=== PATIENT | male | born 1950 | race Hispanic/Latino ===

== ENCOUNTER 2016-04-20 10:10 | Outpatient (CLI) | payer OTHER ==
--- NOTE | 2016-04-20 15:21 | Ultrasound Report ---
RIGHT BREAST ULTRASOUND: 04/20/16 10:10:00 CLINICAL: This patient presented for an ultrasound-guided biopsy of a palpable right subareolar breast mass. However, the patient states that it has resolved. COMPARISON: 02/23/16 FINDINGS: Ultrasound of the right breast was performed and failed to demonstrate the previously described subareolar mass at 11:30 o'clock. IMPRESSION: Negative study. BI-RADS 1 negative RECOMMENDATION: Clinical followup.
== END 2016-04-20 10:11 | disposition home or self-care (01) ==
LOC: SPVWC 10:10
PROVIDERS: ATTEND Internal Medicine
DX: N63 Unspecified lump in breast (principal)

== ENCOUNTER 2017-02-10 12:44 | Emergency (ER) | payer OTHER ==
[2017-02-10 13:09] VITALS: BP 131/80
[2017-02-10 13:41] LABS: Bilirubin,Urine NEG (Negative); Blood,Urine MOD (Negative); Ketones,Urine NEG (Negative); Leukocyte Esterase,Urine NEG (Negative); Mucus,Urine FEW /HPF; Nitrite,Urine NEG (Negative); Protein,Urine <15 mg/dL mg/dL (Negative)
[2017-02-10] MEDS ORDERED: NACL 0.9% 1000 ML 1,000 ML IV ONE (14:45)
[2017-02-10] MEDS ORDERED: NORCO 5/325 PO ONE (14:45)
[2017-02-10] MEDS ORDERED: ZOFRAN ODT PO ONE (14:46)
--- NOTE | 2017-02-10 14:50 | Emergency Department Report ---
<OCTAVIA HANNAH Sea - Last Filed: 02/10/17 16:50> ED Abdominal Pain HPI - General Chief Complaint: Urogenital-Male Stated Complaint: BACK PAIN Time Seen by Provider: 02/10/17 14:40 Source: patient Mode of arrival: Ambulatory Limitations: No Limitations - History of Present Illness MD Complaint: flank pain (L) -: Sudden Location: L flank Radiation: L flank, back Migration to: no migration Severity: moderate Quality: cramping Consistency: constant Improves With: nothing Worsens With: nothing Associated Symptoms: other (CHANGE IN AMOUNT OF URINE). denies: nausea, vomiting, diarrhea, fever, chills, constipation, dysuria, hematemesis, hematochezia, melena, hematuria, anorexia, syncope - Related Data Home Medications Medication Instructions Recorded Confirmed Last Taken Etodolac 200 mg PO BID 08/12/13 08/12/13 08/12/13 amLODIPine [Norvasc] 5 mg PO DAILY 08/12/13 08/12/13 08/12/13 Previous Rx's Medication Instructions Recorded Last Taken Type Omeprazole [PriLOSEC] 20 mg PO BID #60 cap 08/12/13 Unknown Rx Ciprofloxacin HCl [Cipro] 500 mg PO BID #6 tablet 02/10/17 Unknown Rx Ondansetron [Zofran Odt] 4 mg PO Q4H PRN #10 tab.rapdis 02/10/17 Unknown Rx Tamsulosin HCl [Flomax] 0.4 mg PO DAILY #3 cap.er.24h 02/10/17 Unknown Rx traMADol [Ultram] 50 mg PO Q6HR PRN #12 tablet 02/10/17 Unknown Rx Allergies Allergy/AdvReac Type Severity Reaction Status Date / Time codeine AdvReac Intermediate Nausea Verified 02/16/13 07:18 ED Review of Systems ROS: Stated complaint: BACK PAIN Other details as noted in HPI Comment: All other systems reviewed and negative Gastrointestinal: abdominal pain. denies: nausea, vomiting, diarrhea, constipation, hematemesis, melena, hematochezia Genitourinary: as per HPI, dysuria. denies: urgency, frequency, hematuria, discharge, testicular pain, testicular mass Musculoskeletal: back pain ED Past Medical Hx - Past Medical History Hx Hypertension: Yes Hx Arthritis: Yes - Surgical History Hx Cholecystectomy: Yes Additional Surgical History: right elbow surgery, - Social History Smoking Status: Never Smoker Substance Use Type: Alcohol - Medications Home Medications: Home Medications Medication Instructions Recorded Confirmed Last Taken Type Etodolac 200 mg PO BID 08/12/13 08/12/13 08/12/13 History Omeprazole [PriLOSEC] 20 mg PO BID #60 cap 08/12/13 Unknown Rx amLODIPine [Norvasc] 5 mg PO DAILY 08/12/13 08/12/13 08/12/13 History Ciprofloxacin HCl [Cipro] 500 mg PO BID #6 tablet 02/10/17 Unknown Rx Ondansetron [Zofran Odt] 4 mg PO Q4H PRN #10 tab.rapdis 02/10/17 Unknown Rx Tamsulosin HCl [Flomax] 0.4 mg PO DAILY #3 cap.er.24h 02/10/17 Unknown Rx traMADol [Ultram] 50 mg PO Q6HR PRN #12 tablet 02/10/17 Unknown Rx ED Physical Exam - General Limitations: No Limitations General appearance: alert - Head Head exam: Present: atraumatic - Eye Eye exam: Present: PERRL Pupils: Present: normal accommodation - ENT ENT exam: Present: mucous membranes moist - Neck Neck exam: Present: normal inspection - Respiratory Respiratory exam: Present: normal lung sounds bilaterally - Cardiovascular Cardiovascular Exam: Present: regular rate - GI/Abdominal GI/Abdominal exam: Present: soft, normal bowel sounds. Absent: distended, tenderness, guarding, rebound, rigid, diminished bowel sounds, hyperactive bowel sounds, hypoactive bowel sounds, organomegaly, mass, bruit, pulsatile mass , hernia - Rectal Rectal exam: Present: deferred - Extremities Exam Extremities exam: Present: normal inspection - Back Exam Back exam: Present: normal inspection, full ROM - Neurological Exam Neurological exam: Present: alert, oriented X3, CN II-XII intact, normal gait - Psychiatric Psychiatric exam: Present: normal affect, normal mood - Skin Skin exam: Present: warm, dry, intact ED Course Vital Signs 02/10/17 13:05 Temperature 98.3 F Pulse Rate 80 Respiratory 14 Rate Blood Pressure 131/80 O2 Sat by Pulse 97 Oximetry - Reevaluation(s) Reevaluation #1: 02/10/17 16:51 TO ER W L FLANK PAIN WHILE IN TRIAGE PASSED STONE NO GROSS HEMATURIA TO FAST TRACK UA NOTED NO CVA TENDERNESS VOIDING LARGE AMOUNT CL YELLOW URINE NO FEVER LABS NOTED CT NOTED MEDICATED Reevaluation #2: 02/10/17 16:51 FEELS FINE. WILL DC HOME W DC POC PT UPDATED WILL SEE URO NEXT WEEK. ED Medical Decision Making - Lab Data Result diagrams: 02/10/17 15:23 02/10/17 15:23 - Radiology Data Radiology results: report reviewed, image reviewed - Medical Decision Making SEE NOTE - Differential Diagnosis RO NEPHROL. Critical care attestation.: If time is entered above; I have spent that time in minutes in the direct care of this critically ill patient, excluding procedure time. ED Disposition Disposition: DC-01 TO HOME OR SELFCARE Is pt being admited?: No Does the pt Need Aspirin: No Condition: Stable Instructions: Kidney Stones (ED), How to Strain Your Urine (ED), Flank Pain (ED ) Additional Instructions: MEDS ORDERED TODAY HYDRATE WELL MONITOR FOR MORE STONES Prescriptions: Ciprofloxacin HCl [Cipro] 500 mg PO BID #6 tablet Ondansetron [Zofran Odt] 4 mg PO Q4H PRN #10 tab.rapdis PRN Reason: Nausea Tamsulosin HCl [Flomax] 0.4 mg PO DAILY #3 cap.er.24h traMADol [Ultram] 50 mg PO Q6HR PRN #12 tablet PRN Reason: Pain Referrals: PRIMARY CARE, [Referring] - 3-5 Days ADITYA HUTSON MD [Staff Physician] - 3-5 Days BERTA FLOR MD [Staff Physician] - 3-5 Days ALEXANDER SAN MD [Staff Physician] - 3-5 Days RHIANNA DAI MD [Staff Physician] - 3-5 Days Time of Disposition: 16:21 <SHERI GAVIN - Last Filed: 02/15/17 05:30> ED Medical Decision Making - Lab Data Result diagrams: 02/10/17 15:23 02/10/17 15:23
[2017-02-10 15:43] LABS: Basophils % (Auto) 0.6 % (0.0-1.8); Eosinophils % (Auto) 0.7 % (0.0-4.3); Hematocrit 41.5 % (35.5-45.6); Hemoglobin 14.1 gm/dl (11.8-15.2); Mean Corpuscular HGB Conc 34 % (32-34); Mean Corpuscular Hemoglobin 31 pg (28-32); Mean Corpuscular Volume 91 fl (84-94); Platelet Count 213 K/mm3 (140-440); Red Blood Count 4.59 M/mm3 (3.65-5.03); Red Cell Distribution Width 13.6 % (13.2-15.2); White Blood Count 11.5 K/mm3 (4.5-11.0)
--- NOTE | 2017-02-10 15:50 | Cat Scan Report ---
CT abdomen and pelvis without contrast: Flank pain. Transverse images are obtained from the lower chest to the ischium with coronal and sagittal reformatted images. The visualized lung bases are clear. Cardiovascular calcifications are noted. Multiple low attenuation circumscribed masses are identified in the liver. The largest of these is in the left lobe measuring 3.8 cm. The abdominal structures are not otherwise remarkable except for cholecystectomy. There are bilateral renal calcifications. In the right mid renal collecting system there is a 5 mm calculus and a smaller calculus in the inferior portion. In the mid left kidney is a 7.4 mm calculus with 2 smaller calculi in the lower kidney. The right ureter is unremarkable in size. The left ureter is slightly larger throughout its course with some question of mild periureteral edema in the midportion. No evidence however of an intraluminal calculus is currently noted and there is no calculus identified in the bladder. The abdominal aorta is heavily calcified but normal in size and contour. The retroperitoneal structures are otherwise unremarkable. There is a moderate volume of fecal matter throughout the colon. The appendix is visualized and unremarkable. There is diffuse lower thoracic and lumbar spondylosis with diffuse interspace narrowing. Impressions: 1. Bilateral renal calculi. 2. No current ureteral calculus noted. The findings in the left ureter however raise suspicion of recently passed calculus. 3. Significant degenerative lumbar spine disease. 4. Severe atherosclerotic changes of the aorta. 5. Multiple hepatic cysts.
[2017-02-10 15:59] LABS: Anion Gap 19 mmol/L; BUN/Creatinine Ratio 21; Blood Urea Nitrogen 17 mg/dL (9-20); Calcium 8.9 mg/dL (8.4-10.2); Carbon Dioxide 22 mmol/L (22-30); Chloride 106.5 mmol/L (98-107); Glucose 103 mg/dL (75-100); Potassium 4.5 mmol/L (3.6-5.0); Sodium 143 mmol/L (137-145)
[2017-02-10] MEDS ORDERED: ROCEPHIN/NS 1 GM/50 ML 1 GM/50 ML BAG IV ONE (16:05)
[2017-02-10] MEDS ORDERED: cefTRIAXone 1 GM in NACL 0.9% 20 ML IV ONE (16:15)
== END 2017-02-10 17:54 | disposition home or self-care (01) ==
LOC: ED 12:44
DX: R10.9 Unspecified abdominal pain (principal); I10 Essential (primary) hypertension; M19.90 Unspecified osteoarthritis, unspecified site; Z88.6 Allergy status to analgesic agent
CPT/HCPCS: 36415; 74176; 80048; 81001; 85025; 87086; 96361; 96374; 99284; J0696; J7030; Q0162

== ENCOUNTER 2017-11-01 05:44 | Emergency (ER) | payer OTHER ==
[2017-11-01 06:02] VITALS: BP 174/108
[2017-11-01 06:27] LABS: INR 0.83 (0.87-1.13); Partial Thromboplastin Time 26.9 Sec. (24.2-36.6)
[2017-11-01 06:34] LABS: Bilirubin,Urine NEG (Negative); Blood,Urine NEG (Negative); Color,Urine Yellow (Yellow); Mucus,Urine FEW /HPF; Protein,Urine <15 mg/dL mg/dL (Negative); Urobilinogen,Urine < 2.0 mg/dL (<2.0); WBC,Urine < 1.0 /HPF (0.0-6.0)
[2017-11-01 06:35] LABS: Basophils # (Auto) 0.1 K/mm3 (0.0-0.1); Eosinophils # (Auto) 0.2 K/mm3 (0.0-0.4); Eosinophils % (Auto) 4.1 % (0.0-4.3); Hematocrit 44.7 % (35.5-45.6); Hemoglobin 15.4 gm/dl (11.8-15.2); Lymphocytes # (Auto) 1.6 K/mm3 (1.2-5.4); Lymphocytes % (Auto) 26.8 % (13.4-35.0); Mean Corpuscular HGB Conc 35 % (32-34); Mean Corpuscular Hemoglobin 31 pg (28-32); Mean Corpuscular Volume 89 fl (84-94); Monocytes # (Auto) 0.5 K/mm3 (0.0-0.8); Platelet Count 233 K/mm3 (140-440); Red Blood Count 5.03 M/mm3 (3.65-5.03); Red Cell Distribution Width 13.4 % (13.2-15.2)
--- NOTE | 2017-11-01 06:39 | XRay Report ---
FINAL REPORT EXAM: XR CHEST ROUTINE 2V HISTORY: dizziness TECHNIQUE: PA and lateral chest radiographs PRIORS: None. FINDINGS: No mediastinal shift. Cardiac silhouette is not enlarged. No pneumothorax, effusion, or focal pulmonary opacity. No acute skeletal finding. IMPRESSION: No focal pulmonary opacity.
[2017-11-01 06:46] LABS: Alanine Aminotransferase 16 units/L (7-56); Albumin 4.5 g/dL (3.9-5); BUN/Creatinine Ratio 13; Blood Urea Nitrogen 12 mg/dL (9-20); Calcium 9.2 mg/dL (8.4-10.2); Hemolysis Index 9
[2017-11-01] MEDS ORDERED: ANTIVERT PO ONE (08:07)
[2017-11-01] MEDS ORDERED: ZOFRAN ODT PO ONE (08:07)
--- NOTE | 2017-11-01 08:14 | Emergency Department Report ---
ED Dizziness HPI - General Chief Complaint: Dizziness Stated Complaint: NAUSEA DIZZY SWEATING Time Seen by Provider: 11/01/17 07:36 Source: patient Mode of arrival: Ambulatory Limitations: No Limitations - History of Present Illness Initial Comments: 67-year-old male with a past medical history of arthritis, hypertension, and previous cholecystectomy presents to the hospital complaining of waking up 1 hour prior to arrival with a spinning sensation, nausea, and a little bit of vomiting 1. Patient states he gets dizzy when he closes his eyes. He has chronic ringing in both ears does not see a ENT doctor. Patient had sweating with episode this a.m. but denies headache, chest pain, shortness of breath, abdominal pain, diarrhea, hematemesis, or melena. No focal weakness or numbness reported. PMD: Dr. Colindres - Related Data Home Medications Medication Instructions Recorded Confirmed Last Taken Etodolac 200 mg PO BID 08/12/13 11/01/17 10/31/17 amLODIPine [Norvasc] 5 mg PO DAILY 08/12/13 11/01/17 10/31/17 HYDROcodone/ACETAMINOPHEN 1 each PO QDAY 11/01/17 11/01/17 10/31/17 [Hydrocodone-Acetamin 7.5-300] Previous Rx's Medication Instructions Recorded Last Taken Type Omeprazole [PriLOSEC] 20 mg PO BID #60 cap 08/12/13 10/31/17 Rx Amoxicillin/K Clav Tab [Augmentin 1 tab PO Q12HR #14 tab 11/01/17 Unknown Rx 875 mg] Meclizine [Antivert] 25 mg PO TID PRN #30 tablet 11/01/17 Unknown Rx Ondansetron [Zofran Odt] 4 mg PO Q8HR PRN #20 tab.rapdis 11/01/17 Unknown Rx Allergies Allergy/AdvReac Type Severity Reaction Status Date / Time codeine AdvReac Intermediate Nausea Verified 02/16/13 07:18 ED Review of Systems ROS: Stated complaint: NAUSEA DIZZY SWEATING Other details as noted in HPI Comment: All other systems reviewed and negative ED Past Medical Hx - Past Medical History Previous Medical History?: Yes Hx Hypertension: Yes Hx Arthritis: Yes - Surgical History Past Surgical History?: Yes Hx Cholecystectomy: Yes Additional Surgical History: right elbow surgery, - Social History Smoking Status: Former Smoker Substance Use Type: None - Medications Home Medications: Home Medications Medication Instructions Recorded Confirmed Last Taken Type Etodolac 200 mg PO BID 08/12/13 11/01/17 10/31/17 History Omeprazole [PriLOSEC] 20 mg PO BID #60 cap 08/12/13 11/01/17 10/31/17 Rx amLODIPine [Norvasc] 5 mg PO DAILY 08/12/13 11/01/17 10/31/17 History Amoxicillin/K Clav Tab [Augmentin 1 tab PO Q12HR #14 tab 11/01/17 Unknown Rx 875 mg] HYDROcodone/ACETAMINOPHEN 1 each PO QDAY 11/01/17 11/01/17 10/31/17 History [Hydrocodone-Acetamin 7.5-300] Meclizine [Antivert] 25 mg PO TID PRN #30 tablet 11/01/17 Unknown Rx Ondansetron [Zofran Odt] 4 mg PO Q8HR PRN #20 tab.rapdis 11/01/17 Unknown Rx ED Physical Exam - General Limitations: No Limitations - Other Other exam information: General: No limitations, patient is alert in no acute distress Head exam: Atraumatic, normocephalic Eyes exam: Normal appearance, pupils equal reactive to light, extraocular movements intact, no nystagmus ENT: Moist mucous membrane, TM abnormal with scarring questionable fluid, left TM normal. No erythema or bulging Neck exam: Normal inspection, full range of motion, no meningismus nontender Respiratory exam: Clear to auscultation bilateral, no wheezes, rales, crackles Cardiovascular: Normal rate and rhythm, normal heart sounds Abdomen: Soft, nondistended, and nontender, with normal bowel sounds, no rebound, or guarding Extremity: Full range of motion normal inspection no deformity Back: Normal Inspection, full range of motion, no tenderness Neurologic: Alert, oriented x3, cranial nerves intact, no motor or sensory deficit, [id number] function intact Psychiatric: normal affect, normal mood Skin: Warm, dry, intact ED Course Vital Signs 11/01/17 11/01/17 11/01/17 05:56 08:00 08:23 Temperature 97.4 F L 97.2 F L Pulse Rate 76 Respiratory 16 16 Rate Blood Pressure 174/108 O2 Sat by Pulse 98 98 Oximetry ED Medical Decision Making - Lab Data Result diagrams: 11/01/17 06:21 11/01/17 06:21 Lab Results 11/01/17 11/01/17 11/01/17 Range/Units 06:07 06:21 06:21 WBC 6.0 (4.5-11.0) K/mm3 RBC 5.03 (3.65-5.03) M/mm3 Hgb 15.4 H (11.8-15.2) gm/dl Hct 44.7 (35.5-45.6) % MCV 89 (84-94) fl MCH 31 (28-32) pg MCHC 35 H (32-34) % RDW 13.4 (13.2-15.2) % Plt Count 233 (140-440) K/mm3 Lymph % (Auto) 26.8 (13.4-35.0) % [place] % (Auto) 9.0 H (0.0-7.3) % Eos % (Auto) 4.1 (0.0-4.3) % Baso % (Auto) 1.0 (0.0-1.8) % Lymph # 1.6 (1.2-5.4) K/mm3 [place] # 0.5 (0.0-0.8) K/mm3 Eos # 0.2 (0.0-0.4) K/mm3 Baso # 0.1 (0.0-0.1) K/mm3 Seg Neutrophils % 59.1 (40.0-70.0) % Seg Neutrophils # 3.5 (1.8-7.7) K/mm3 PT 11.8 L (12.2-14.9) Sec. INR 0.83 L (0.87-1.13) APTT 26.9 (24.2-36.6) Sec. Sodium 143 (137-145) mmol/L Potassium 4.3 (3.6-5.0) mmol/L Chloride 107.1 H (98-107) mmol/L Carbon Dioxide 25 (22-30) mmol/L Anion Gap 15 mmol/L BUN 12 (9-20) mg/dL Creatinine 0.9 (0.8-1.5) mg/dL Estimated GFR > 60 ml/min BUN/Creatinine Ratio 13 % Glucose 132 H (75-100) mg/dL Calcium 9.2 (8.4-10.2) mg/dL Total Bilirubin 0.20 (0.1-1.2) mg/dL AST 17 (5-40) units/L ALT 16 (7-56) units/L Alkaline Phosphatase 84 (35-129) units/L Troponin T (0.00-0.029) ng/mL Total Protein 6.6 (6.3-8.2) g/dL Albumin 4.5 (3.9-5) g/dL Albumin/Globulin Ratio 2.1 % Urine Color (Yellow) Urine Turbidity (Clear) Urine pH (5.0-7.0) Ur Specific [place] (1.003-1.030) Urine Protein (Negative) mg/dL Urine Glucose (UA) (Negative) mg/dL Urine Ketones (Negative) mg/dL Urine Blood (Negative) Urine Nitrite (Negative) Urine Bilirubin (Negative) Urine Urobilinogen (<2.0) mg/dL Ur Leukocyte Esterase (Negative) Urine WBC (Auto) (0.0-6.0) /HPF Urine RBC (Auto) (0.0-6.0) /HPF U Epithel Cells (Auto) (0-13.0) /HPF Urine Mucus /HPF 11/01/17 11/01/17 Range/Units 06:21 Unknown WBC (4.5-11.0) K/mm3 RBC (3.65-5.03) M/mm3 Hgb (11.8-15.2) gm/dl Hct (35.5-45.6) % MCV (84-94) fl MCH (28-32) pg MCHC (32-34) % RDW (13.2-15.2) % Plt Count (140-440) K/mm3 Lymph % (Auto) (13.4-35.0) % [place] % (Auto) (0.0-7.3) % Eos % (Auto) (0.0-4.3) % Baso % (Auto) (0.0-1.8) % Lymph # (1.2-5.4) K/mm3 [place] # (0.0-0.8) K/mm3 Eos # (0.0-0.4) K/mm3 Baso # (0.0-0.1) K/mm3 Seg Neutrophils % (40.0-70.0) % Seg Neutrophils # (1.8-7.7) K/mm3 PT (12.2-14.9) Sec. INR (0.87-1.13) APTT (24.2-36.6) Sec. Sodium (137-145) mmol/L Potassium (3.6-5.0) mmol/L Chloride (98-107) mmol/L Carbon Dioxide (22-30) mmol/L Anion Gap mmol/L BUN (9-20) mg/dL Creatinine (0.8-1.5) mg/dL Estimated GFR ml/min BUN/Creatinine Ratio % Glucose (75-100) mg/dL Calcium (8.4-10.2) mg/dL Total Bilirubin (0.1-1.2) mg/dL AST (5-40) units/L ALT (7-56) units/L Alkaline Phosphatase (35-129) units/L Troponin T < 0.010 (0.00-0.029) ng/mL Total Protein (6.3-8.2) g/dL Albumin (3.9-5) g/dL Albumin/Globulin Ratio % Urine Color Yellow (Yellow) Urine Turbidity Clear (Clear) Urine pH 6.0 (5.0-7.0) Ur Specific [place] 1.012 (1.003-1.030) Urine Protein <15 mg/dl (Negative) mg/dL Urine Glucose (UA) Neg (Negative) mg/dL Urine Ketones Neg (Negative) mg/dL Urine Blood Neg (Negative) Urine Nitrite Neg (Negative) Urine Bilirubin Neg (Negative) Urine Urobilinogen < 2.0 (<2.0) mg/dL Ur Leukocyte Esterase Neg (Negative) Urine WBC (Auto) < 1.0 (0.0-6.0) /HPF Urine RBC (Auto) 3.0 (0.0-6.0) /HPF U Epithel Cells (Auto) 1.0 (0-13.0) /HPF Urine Mucus Few /HPF - EKG Data -: EKG Interpreted by Tn EKG shows normal: sinus rhythm, axis (qrs 15), QRS complexes (qrsd 93), ST-T waves (no stemi/ t inv) Rate: normal (67) - EKG Data When compared to previous EKG there are: no significant change (02/16/13) - Radiology Data Radiology results: report reviewed CT HEAD WITHOUT CONTRAST INDICATION: Vertigo, nausea. COMPARISON: None similar. FINDINGS: Noncontrast head CT demonstrates normal ventricles and sulci without acute or recent infarct, hemorrhage, mass effect or midline shift. Minimal, benign bilateral basal ganglia calcifications. No abnormal extra-axial fluid collections. Posterior fossa structures and basilar cisterns appear within normal limits. Symmetric eye globes. Clear frontal sinuses and mastoid air cells. Leftward nasal septal deviation, axial image 3. Mild bilateral maxillary and ethmoid sinuses as also lateral nasal mucosal thickening noted. Slight bilateral sphenoid sinus mucosal thickening anteriorly as well. Intact calvarium. Normal overlying scalp soft tissues. Few radiopaque dental material incidentally noted. Mid to lower cervical spondylosis. CONCLUSION: No acute intracranial CT abnormality with sinusitis and nasal septal deviation noted, as described. FINAL REPORT EXAM: XR CHEST ROUTINE 2V HISTORY: dizziness TECHNIQUE: PA and lateral chest radiographs PRIORS: None. FINDINGS: No mediastinal shift. Cardiac silhouette is not enlarged. No pneumothorax, effusion, or focal pulmonary opacity. No acute skeletal finding. IMPRESSION: No focal pulmonary opacity. - Medical Decision Making vertigo nonfocal neuro exam ct brain naf, mild sinusitis noted labs, orthostatics, ekg unremarkable improved in ed with meclizine and zofran plan to d/c with pmd and ent f/u htn chronic improved compared to triage - Differential Diagnosis vertigo, serous otitis, CVA, electrolyte abnormality, arrhythmia Critical Care Time: No Critical care attestation.: If time is entered above; I have spent that time in minutes in the direct care of this critically ill patient, excluding procedure time. ED Disposition Clinical Impression: Vertigo, Sinusitis Disposition: DC-01 TO HOME OR SELFCARE Is pt being admited?: No Does the pt Need Aspirin: No Condition: Stable Instructions: Vertigo (ED), Sinusitis (ED) Additional Instructions: Take the medication as prescribed. Follow up with your primary care doctor and an ear nose and throat doctor. Return is symptoms worsen as indicated by your discharge instructions. Prescriptions: Amoxicillin/K Clav Tab [Augmentin 875 mg] 1 tab PO Q12HR #14 tab Meclizine [Antivert] 25 mg PO TID PRN #30 tablet PRN Reason: Vertigo Ondansetron [Zofran Odt] 4 mg PO Q8HR PRN #20 tab.rapdis PRN Reason: Nausea And Vomiting Referrals: YESSY COLINDRES MD [Staff Physician] - 3-5 Days KENNA CHAVARRIA MD [Staff Physician] - 3-5 Days (ENT doctor) SAMEERA AGUILERA MD [Staff Physician] - 3-5 Days (ENT doctor) Time of Disposition: 10:36
--- NOTE | 2017-11-01 10:06 | Cat Scan Report ---
CT HEAD WITHOUT CONTRAST INDICATION: Vertigo, nausea. COMPARISON: None similar. FINDINGS: Noncontrast head CT demonstrates normal ventricles and sulci without acute or recent infarct, hemorrhage, mass effect or midline shift. Minimal, benign bilateral basal ganglia calcifications. No abnormal extra-axial fluid collections. Posterior fossa structures and basilar cisterns appear within normal limits. Symmetric eye globes. Clear frontal sinuses and mastoid air cells. Leftward nasal septal deviation, axial image 3. Mild bilateral maxillary and ethmoid sinuses as also lateral nasal mucosal thickening noted. Slight bilateral sphenoid sinus mucosal thickening anteriorly as well. Intact calvarium. Normal overlying scalp soft tissues. Few radiopaque dental material incidentally noted. Mid to lower cervical spondylosis. CONCLUSION: No acute intracranial CT abnormality with sinusitis and nasal septal deviation noted, as described. Thank you for the opportunity to participate in this patient's care.
== END 2017-11-01 10:30 | disposition home or self-care (01) ==
LOC: ED 05:44
DX: R42 Dizziness and giddiness (principal); J32.9 Chronic sinusitis, unspecified; R11.2 Nausea with vomiting, unspecified; I10 Essential (primary) hypertension; M19.90 Unspecified osteoarthritis, unspecified site; Z90.49 Acquired absence of other specified parts of digestive tract; Z87.891 Personal history of nicotine dependence; Z88.5 Allergy status to narcotic agent
CPT/HCPCS: 36415; 70450; 71046; 80053; 81001; 84484; 85025; 85610; 85730; 93005; 93010; 99284; Q0162

== ENCOUNTER 2018-04-26 02:01 | Emergency (ER) | payer BC, OTHER ==
[2018-04-26] MEDS ORDERED: TYLENOL PO ONE (02:19)
[2018-04-26] MEDS ORDERED: DELTASONE PO ONE (04:50)
[2018-04-26] MEDS ORDERED: ULTRAM PO ONE (04:50)
[2018-04-26 05:12] VITALS: BP 136/74
--- NOTE | 2018-04-26 05:13 | Emergency Department Report ---
ED General Adult HPI - General Chief complaint: Extremity Problem,Nontraumatic Stated complaint: RT FOOT PAIN Time Seen by Provider: 04/26/18 04:49 Source: patient Mode of arrival: Ambulatory Limitations: No Limitations - History of Present Illness Initial comments: Mr. Warner is a 68-year-old white male with a history of gout who presents for right foot and ankle pain 2 days states pain just started when he was at work yesterday patient denies fall injury or trauma pain is 5/10 aching mild swelling symptoms are exacerbated by prolonged standing and walking symptoms are relieved by rest and offloading patient is out of gout medication does not remember if he is on allopurinol or not but has not taken it for the last 6 months patient has PCP Dr. Colindres will be able to follow-up the same in 2 days Patient denies numbness tingling Onset/Timin -: days(s) Location: lower extremity Radiation: extremity Severity scale (0 -10): 3 Quality: aching Consistency: constant Improves with: rest Worsens with: movement, other (weight bearing ) Treatments Prior to Arrival: none - Related Data Home Medications Medication Instructions Recorded Confirmed Last Taken Etodolac 200 mg PO BID 08/12/13 11/01/17 10/31/17 amLODIPine [Norvasc] 5 mg PO DAILY 08/12/13 11/01/17 10/31/17 HYDROcodone/ACETAMINOPHEN 1 each PO QDAY 11/01/17 11/01/17 10/31/17 [Hydrocodone-Acetamin 7.5-300] Previous Rx's Medication Instructions Recorded Last Taken Type Omeprazole [PriLOSEC] 20 mg PO BID #60 cap 08/12/13 10/31/17 Rx Amoxicillin/K Clav Tab [Augmentin 1 tab PO Q12HR #14 tab 11/01/17 Unknown Rx 875 mg] Meclizine [Antivert] 25 mg PO TID PRN #30 tablet 11/01/17 Unknown Rx Ondansetron [Zofran Odt] 4 mg PO Q8HR PRN #20 tab.rapdis 11/01/17 Unknown Rx Indomethacin 50 mg PO Q8H 10 Days #30 capsule 04/26/18 Unknown Rx predniSONE [Deltasone] 40 mg PO QDAY 5 Days #10 tab 04/26/18 Unknown Rx Allergies Allergy/AdvReac Type Severity Reaction Status Date / Time codeine AdvReac Intermediate Nausea Verified 02/16/13 07:18 ED Review of Systems ROS: Stated complaint: RT FOOT PAIN Other details as noted in HPI Constitutional: denies: chills, fever Eyes: denies: eye pain, eye discharge, vision change ENT: denies: ear pain, throat pain Respiratory: denies: cough, shortness of breath, wheezing Cardiovascular: denies: chest pain, palpitations Endocrine: no symptoms reported Gastrointestinal: as per HPI. denies: abdominal pain, nausea, vomiting Genitourinary: denies: urgency, dysuria Musculoskeletal: joint swelling, arthralgia (right foot ). denies: back pain Skin: denies: rash, lesions Neurological: denies: headache, weakness, paresthesias Psychiatric: denies: anxiety, depression Hematological/Lymphatic: denies: easy bleeding, easy bruising ED Past Medical Hx - Past Medical History Previous Medical History?: Yes Hx Hypertension: Yes Hx Arthritis: Yes - Surgical History Past Surgical History?: Yes Hx Cholecystectomy: Yes Additional Surgical History: right elbow surgery, - Social History Smoking Status: Former Smoker Substance Use Type: None - Medications Home Medications: Home Medications Medication Instructions Recorded Confirmed Last Taken Type Etodolac 200 mg PO BID 08/12/13 11/01/17 10/31/17 History Omeprazole [PriLOSEC] 20 mg PO BID #60 cap 08/12/13 11/01/17 10/31/17 Rx amLODIPine [Norvasc] 5 mg PO DAILY 08/12/13 11/01/17 10/31/17 History Amoxicillin/K Clav Tab [Augmentin 1 tab PO Q12HR #14 tab 11/01/17 Unknown Rx 875 mg] HYDROcodone/ACETAMINOPHEN 1 each PO QDAY 11/01/17 11/01/17 10/31/17 History [Hydrocodone-Acetamin 7.5-300] Meclizine [Antivert] 25 mg PO TID PRN #30 tablet 11/01/17 Unknown Rx Ondansetron [Zofran Odt] 4 mg PO Q8HR PRN #20 tab.rapdis 11/01/17 Unknown Rx Indomethacin 50 mg PO Q8H 10 Days #30 capsule 04/26/18 Unknown Rx predniSONE [Deltasone] 40 mg PO QDAY 5 Days #10 tab 04/26/18 Unknown Rx ED Physical Exam - General Limitations: No Limitations General appearance: alert, in no apparent distress - Head Head exam: Present: atraumatic, normocephalic - Eye Eye exam: Present: normal appearance, PERRL, EOMI Pupils: Present: normal accommodation - ENT ENT exam: Present: mucous membranes moist - Neck Neck exam: Present: normal inspection - Respiratory Respiratory exam: Present: normal lung sounds bilaterally. Absent: respiratory distress, wheezes, stridor - Cardiovascular Cardiovascular Exam: Present: regular rate, normal rhythm, normal heart sounds. Absent: systolic murmur, diastolic murmur, rubs, gallop - GI/Abdominal GI/Abdominal exam: Present: soft, normal bowel sounds - Rectal Rectal exam: Present: deferred - Extremities Exam Extremities exam: Present: normal inspection, full ROM, tenderness (right foot ), normal capillary refill, joint swelling. Absent: pedal edema, calf tenderness - Expanded Lower Extremity Exam Right Ankle exam: Present: full ROM, tenderness, swelling, erythema. Absent: abrasion, laceration, ecchymosis, deformity, crepidus, dislocation, anterior draw sign Foot/Toe exam: Present: normal inspection, full ROM. Absent: tenderness, swelling Neuro vascular tendon exam: Present: no vascular compromise. Absent: motor deficit, sensory deficit, tendon deficit Gait: Positive: observed and limited by pain - Back Exam Back exam: Present: normal inspection, full ROM. Absent: tenderness - Neurological Exam Neurological exam: Present: alert, oriented X3, CN II-XII intact, abnormal gait (mild limp ), reflexes normal. Absent: motor sensory deficit - Psychiatric Psychiatric exam: Present: normal affect, normal mood - Skin Skin exam: Present: warm, dry, intact, normal color. Absent: rash ED Course Vital Signs 04/26/18 04/26/18 04/26/18 02:07 02:20 03:20 Temperature 97.9 F Pulse Rate 99 H Respiratory 18 18 18 Rate Blood Pressure 141/82 O2 Sat by Pulse 97 Oximetry ED Medical Decision Making - Medical Decision Making this is likely a gout exacerbation versus arthritis there has been no injury no truama this is one of the usual flare sites for this patient's gout. plan: indomethacin, prednisone, follow up with pcp Dr Colindres in 2 days return to ed if symptoms worsen. pt verbalized agreement and understanding of same. Critical care attestation.: If time is entered above; I have spent that time in minutes in the direct care of this critically ill patient, excluding procedure time. ED Disposition Clinical Impression: Exacerbation of gout Disposition: TO HOME OR SELFCARE Is pt being admited?: No Does the pt Need Aspirin: No Condition: Stable Instructions: Acute Gouty Arthritis (ED), Low Purine Diet (ED) Prescriptions: Indomethacin 50 mg PO Q8H 10 Days #30 capsule predniSONE [Deltasone] 40 mg PO QDAY 5 Days #10 tab Referrals: YESSY COLINDRES MD [Primary Care Provider] - 3-5 Days Forms: Work/School Release Form(ED) Time of Disposition: 05:21
== END 2018-04-26 05:38 | disposition home or self-care (01) ==
LOC: ED 02:01
DX: M10.9 Gout, unspecified (principal); I10 Essential (primary) hypertension; M19.90 Unspecified osteoarthritis, unspecified site; Z90.49 Acquired absence of other specified parts of digestive tract; Z87.891 Personal history of nicotine dependence; Z79.899 Other long term (current) drug therapy; Z88.4 Allergy status to anesthetic agent
CPT/HCPCS: 99282; J7512

== ENCOUNTER 2020-12-16 09:26 | Emergency (ER) | payer BC ==
[2020-12-16 10:13] VITALS: BP 167/87
--- NOTE | 2020-12-16 11:57 | Emergency Department Report ---
ED General Adult HPI - General Chief complaint: Upper Respiratory Infection Stated complaint: COUGH/CHESTPAIN/HEADACHE Time Seen by Provider: 12/16/20 11:39 Source: patient Mode of arrival: Ambulatory Limitations: No Limitations - History of Present Illness Initial comments: 70-year-old male patient with history of hypertension, GERD, and arth ritis presents with complaints of a cough x1 week. Patient states he saw his PCP 2 days ago and was prescribed cough medication and azithromycin. He states his cough is not improving. He states he gets pain in his chest with coughing only and denies any hemoptysis, shortness of breath, leg pain/swelling, recent long travel, history of DVT/PE. Patient's was diagnosed with Covid a few days ago per patient. -: Sudden - Related Data Home Medications Medication Instructions Recorded Confirmed Last Taken Etodolac 200 mg PO BID 08/12/13 11/01/17 10/31/17 amLODIPine [Norvasc] 5 mg PO DAILY 08/12/13 11/01/17 10/31/17 HYDROcodone/ACETAMINOPHEN 1 each PO QDAY 11/01/17 11/01/17 10/31/17 [Hydrocodone-Acetamin 7.5-300] Previous Rx's Medication Instructions Recorded Last Taken Type Omeprazole [PriLOSEC] 20 mg PO BID #60 cap 08/12/13 10/31/17 Rx Amoxicillin/K Clav Tab [Augmentin 1 tab PO Q12HR #14 tab 11/01/17 Unknown Rx 875 mg] Meclizine [Antivert] 25 mg PO TID PRN #30 tablet 11/01/17 Unknown Rx Ondansetron [Zofran Odt] 4 mg PO Q8HR PRN #20 tab.rapdis 11/01/17 Unknown Rx Indomethacin 50 mg PO Q8H 10 Days #30 capsule 04/26/18 Unknown Rx predniSONE [Deltasone] 40 mg PO QDAY 5 Days #10 tab 04/26/18 Unknown Rx Albuterol Mdi (or & Nicu Only) 2 puff IH Q4H PRN #8.5 gram 12/16/20 Unknown Rx [ProAir HFA Inhaler] Amoxicillin/Potassium Clav 2 each PO BID 7 Days #28 tab.er.12h 12/16/20 Unknown Rx [Augmentin Xr 1,000-62.5 Tab] Promethazine/Phenyleph/Codeine 5 ml PO Q8H PRN #1 bottle 12/16/20 Unknown Rx [Promethazine Vc-Codeine Syrup] Allergies Allergy/AdvReac Type Severity Reaction Status Date / Time codeine AdvReac Intermediate Nausea Verified 12/16/20 10:11 ED Review of Systems ROS: Stated complaint: COUGH/CHESTPAIN/HEADACHE Other details as noted in HPI Constitutional: denies: chills, diaphoresis, fever, malaise Respiratory: cough. denies: shortness of breath Cardiovascular: as per HPI. denies: edema, syncope Gastrointestinal: denies: abdominal pain, nausea, vomiting Skin: denies: rash, change in color Neurological: denies: headache ED Past Medical Hx - Past Medical History Hx Hypertension: Yes Hx Arthritis: Yes - Surgical History Hx Cholecystectomy: Yes Additional Surgical History: right elbow surgery, - Social History Smoking Status: Former Smoker Substance Use Type: None - Medications Home Medications: Home Medications Medication Instructions Recorded Confirmed Last Taken Type Etodolac 200 mg PO BID 08/12/13 11/01/17 10/31/17 History Omeprazole [PriLOSEC] 20 mg PO BID #60 cap 08/12/13 11/01/17 10/31/17 Rx amLODIPine [Norvasc] 5 mg PO DAILY 08/12/13 11/01/17 10/31/17 History Amoxicillin/K Clav Tab [Augmentin 1 tab PO Q12HR #14 tab 11/01/17 Unknown Rx 875 mg] HYDROcodone/ACETAMINOPHEN 1 each PO QDAY 11/01/17 11/01/17 10/31/17 History [Hydrocodone-Acetamin 7.5-300] Meclizine [Antivert] 25 mg PO TID PRN #30 tablet 11/01/17 Unknown Rx Ondansetron [Zofran Odt] 4 mg PO Q8HR PRN #20 tab.rapdis 11/01/17 Unknown Rx Indomethacin 50 mg PO Q8H 10 Days #30 capsule 04/26/18 Unknown Rx predniSONE [Deltasone] 40 mg PO QDAY 5 Days #10 tab 04/26/18 Unknown Rx Albuterol Mdi (or & Nicu Only) 2 puff IH Q4H PRN #8.5 gram 12/16/20 Unknown Rx [ProAir HFA Inhaler] Amoxicillin/Potassium Clav 2 each PO BID 7 Days #28 tab.er.12h 12/16/20 Unknown Rx [Augmentin Xr 1,000-62.5 Tab] Promethazine/Phenyleph/Codeine 5 ml PO Q8H PRN #1 bottle 12/16/20 Unknown Rx [Promethazine Vc-Codeine Syrup] ED Physical Exam - General Limitations: No Limitations General appearance: alert, in no apparent distress - Head Head exam: Present: atraumatic, normocephalic - Eye Eye exam: Present: normal appearance. Absent: scleral icterus - Neck Neck exam: Present: normal inspection - Respiratory Respiratory exam: Present: normal lung sounds bilaterally. Absent: respiratory distress - Cardiovascular Cardiovascular Exam: Present: regular rate, normal rhythm - Extremities Exam Extremities exam: Present: full ROM. Absent: calf tenderness - Neurological Exam Neurological exam: Present: alert, oriented X3 - Psychiatric Psychiatric exam: Present: normal affect, normal mood - Skin Skin exam: Present: warm, dry, intact, normal color. Absent: rash, cyanosis, diaphoretic ED Course Vital Signs 12/16/20 10:12 Temperature 98.6 F Pulse Rate 100 H Respiratory 16 Rate Blood Pressure 167/87 [Left] O2 Sat by Pulse 98 Oximetry ED Medical Decision Making - Lab Data Result diagrams: 12/16/20 13:11 Lab Results 12/16/20 12/16/20 Range/Units 13:11 13:11 WBC 15.4 H (4.5-11.0) K/mm3 RBC 4.71 (3.65-5.03) M/mm3 Hgb 14.4 (11.8-15.2) gm/dl Hct 42.3 (35.5-45.6) % MCV 90 (84-94) fl MCH 31 (28-32) pg MCHC 34 (32-34) % RDW 13.3 (13.2-15.2) % Plt Count 457 H (140-440) K/mm3 Lymph % (Auto) 7.0 L (13.4-35.0) % Stephens % (Auto) 8.0 H (0.0-7.3) % Eos % (Auto) 0.2 (0.0-4.3) % Baso % (Auto) 0.2 (0.0-1.8) % Lymph # (Auto) 1.1 L (1.2-5.4) K/mm3 Stephens # (Auto) 1.2 H (0.0-0.8) K/mm3 Eos # (Auto) 0.0 (0.0-0.4) K/mm3 Baso # (Auto) 0.0 (0.0-0.1) K/mm3 Seg Neutrophils % 84.6 H (40.0-70.0) % Seg Neutrophils # 13.0 H (1.8-7.7) K/mm3 Sodium 142 (137-145) mmol/L Potassium 3.7 (3.6-5.0) mmol/L Chloride 103.8 (98-107) mmol/L Carbon Dioxide 28 (22-30) mmol/L Anion Gap 14 mmol/L BUN 16 (9-20) mg/dL Creatinine 0.8 (0.8-1.3) mg/dL Estimated GFR > 60 ml/min BUN/Creatinine Ratio 20 % Glucose 100 (75-100) mg/dL Calcium 9.3 (8.4-10.2) mg/dL - Radiology Data Radiology results: report reviewed CHEST 2 VIEWS INDICATION / CLINICAL INFORMATION: cough, covid exposure. COMPARISON: 11/01/2017 FINDINGS: SUPPORT DEVICES: None. HEART / MEDIASTINUM: No significant abnormality. LUNGS / PLEURA: Mild increased interstitial prominence with issues opacities in bilateral lungs. Some mild nodularity is suggested within the left lung with nodular density measuring 8 mm. No pneumothorax. ADDITIONAL FINDINGS: No significant additional findings. IMPRESSION: Mild pulmonary opacities in bilateral lungs could represent infiltrate. Some nodularities in the left lower lung. A follow-up chest x-ray or CT is recommended. - Medical Decision Making 70-year-old male patient with history of hypertension, GERD, and arthritis presents with complaints of a cough x1 week. Patient states he saw his PCP 2 days ago and was prescribed cough medication and azithromycin. He states his cough is not improving. He states he gets pain in his chest with coughing only and denies any hemoptysis, shortness of breath, leg pain/swelling, recent long travel, history of DVT/PE. Patient's was diagnosed with Covid a few days ago per patient. X-ray shows pneumonia that appears to be consistent with Covid pattern of infection. Patient ambulated and pulse ox noted to remain 94 to 95% on room air with ambulation. Mild shortness of breath noted post ambulation with a heart rate of 107. Heart rate at rest is noted to be 92. Discussed patient with Dr. De Los Santos in detail who recommends a dose of Decadron, educational home pulse oximetry, and an inhaler with self quarantine. Given patient worsening despite taking Z-Onesimo for the past 2 days, Augmentin 2 g added the recommendation of up-to-date. Discussed all findings in detail with patient and discussed in great detail signs and symptoms that should prompt immediate return to the emergency department, he verbalizes understanding. He is otherwise well- appearing and stable for discharge home. Critical care attestation.: If time is entered above; I have spent that time in minutes in the direct care of this critically ill patient, excluding procedure time. ED Disposition Clinical Impression: Person under investigation for COVID-19, Pneumonia due to COVID-19 virus Disposition: HOME / SELF CARE / HOMELESS Is pt being admited?: No Condition: Stable Instructions: Community-Acquired Pneumonia, Adult, Bacterial Pneumonia (ED), Prevent the Spread of COVID-19 if You Are Sick - CDC, COVID-19 Additional Instructions: Please purchase a finger pulse oximeter and check your oxygenation frequently, especially if you are feeling short of breath. If you notice your oxygenation is dropping below 93% consistently, seek immediate emergency treatment. If you develop any new or worsening symptoms seek immediate emergency treatment as discussed Prescriptions: Amoxicillin/Potassium Clav [Augmentin Xr 1,000-62.5 Tab] 2 each PO BID 7 Days #28 tab.er.12h Albuterol Mdi (or & Nicu Only) [ProAir HFA Inhaler] 2 puff IH Q4H PRN #8.5 gram PRN Reason: shortness of breath/wheezing Promethazine/Phenyleph/Codeine [Promethazine Vc-Codeine Syrup] 5 ml PO Q8H PRN #1 bottle PRN Reason: severe cough Referrals: PRIMARY CARE, [Primary Care Provider] - 3-5 Days
--- NOTE | 2020-12-16 12:18 | XRay Report ---
CHEST 2 VIEWS INDICATION / CLINICAL INFORMATION: cough, covid exposure. COMPARISON: 11/01/2017 FINDINGS: SUPPORT DEVICES: None. HEART / MEDIASTINUM: No significant abnormality. LUNGS / PLEURA: Mild increased interstitial prominence with issues opacities in bilateral lungs. Some mild nodularity is suggested within the left lung with nodular density measuring 8 mm. No pneumothor ax. ADDITIONAL FINDINGS: No significant additional findings. IMPRESSION: Mild pulmonary opacities in bilateral lungs could represent infiltrate. Some nodularities in the left lower lung. A follow-up chest x-ray or CT is recommended. Signer Name: Ez Cortez MD Signed: 12/16/2020 12:14 PM Workstation Name: [id number]
[2020-12-16 13:35] LABS: Basophils % (Auto) 0.2 % (0.0-1.8); Eosinophils % (Auto) 0.2 % (0.0-4.3); Hematocrit 42.3 % (35.5-45.6); Hemoglobin 14.4 gm/dl (11.8-15.2); Lymphocytes # (Auto) 1.1 K/mm3 (1.2-5.4); Mean Corpuscular HGB Conc 34 % (32-34); Mean Corpuscular Volume 90 fl (84-94); Monocytes # (Auto) 1.2 K/mm3 (0.0-0.8); Platelet Count 457 K/mm3 (140-440); Red Blood Count 4.71 M/mm3 (3.65-5.03); Red Cell Distribution Width 13.3 % (13.2-15.2)
[2020-12-16] MEDS ORDERED: dexAMETHasone 4 MG/ML VIAL IM STA (13:54)
[2020-12-16 13:58] LABS: BUN/Creatinine Ratio 20; Blood Urea Nitrogen 16 mg/dL (9-20); Calcium 9.3 mg/dL (8.4-10.2); Hemolysis Index 2
[2020-12-16] MEDS ORDERED: PROMETHAZINE/CODEINE 6.25-10 MG ORAL LIQD 5 ML PO ONE (15:00)
--- NOTE | 2020-12-21 14:18 | Electrocardiograph Report ---
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
== END 2020-12-16 14:50 | disposition home or self-care (01) ==
LOC: ED 09:26
DX: U07.1 COVID-19 (principal); J12.82 Pneumonia due to coronavirus disease 2019; I10 Essential (primary) hypertension; Z90.49 Acquired absence of other specified parts of digestive tract; Z87.891 Personal history of nicotine dependence; Z88.5 Allergy status to narcotic agent
CPT/HCPCS: 36415; 71046; 80048; 85025; 93005; 96372; 99284; J1100; 99283